=== PATIENT | male | born 1955 | race Caucasian/White ===

== ENCOUNTER 2020-12-10 21:07 | Inpatient (IN) | payer MEDICARE, BC ==
[~2020-12-10] VITALS: Ht 180.3 cm; Wt 85.3 kg
--- NOTE | 2020-12-10 21:17 | NUR ---
BIBS FOR C/O LLQ ABD PAIN X 24 HRS. + DYSURIA, - N/V/D, - HEMATURIA. AMBULATORY TO BED 2. 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
[2020-12-10 21:52] LABS: BASOPHILS # (AUTO) 0.1 /CMM (0.0-0.2); BASOPHILS % (AUTO) 0.8 % (0.0-2.0); EOSINOPHILS % (AUTO) 1.5 % (0.0-6.0); HEMATOCRIT 47 % (39-51); HEMOGLOBIN 15.7 g/dL (13.5-17.5); LYMPHOCYTES # (AUTO) 0.7 /CMM (0.8-4.8); LYMPHOCYTES % (AUTO) 8.5 % (20.0-44.0); MEAN CORPUSCULAR HGB CONC 34 g/dl (31.0-36.0); MEAN CORPUSCULAR VOLUME 92 fL (80-96); MONOCYTES # (AUTO) 0.4 /CMM (0.1-1.30); MONOCYTES % (AUTO) 4.1 % (2.0-12.0); NEUTROPHILS # (AUTO) 7.4 /CMM (1.8-8.9); NEUTROPHILS % (AUTO) 85.1 % (43.0-81.0); PLATELET COUNT (AUTO) 261 /CMM (150-450); RED BLOOD CELL COUNT(AUTO) 5.08 MIL/uL (4.5-6.0); WHITE BLOOD COUNT (AUTO) 8.7 K/uL (4.3-11.0)
--- NOTE | 2020-12-10 21:57 | NUR ---
PT LEFT FOR CT
--- NOTE | 2020-12-10 22:05 | NUR ---
fran, : home [phone] cell [phone]
[2020-12-10 22:07] LABS: CALCIUM, SERUM 8.8 mg/dL (8.5-10.1); CREATININE 1.5 mg/dL (0.6-1.3)
--- NOTE | 2020-12-10 22:07 | NUR ---
back from ct
[2020-12-10 22:14] LABS: ALBUMIN 3.3 g/dL (3.4-5.0); BILIRUBIN,DIRECT 0.2 mg/dL (0.0-0.2); BILIRUBIN,TOTAL 0.8 mg/dL (0.2-1.0); TOTAL PROTEIN, SERUM 7.5 g/dL (6.4-8.2)
[2020-12-10 22:27] LABS: BILIRUBIN,URINE SMALL (NEGATIVE); COLOR,URINE YELLOW (YELLOW); LEUKOCYTE ESTERASE ,URINE Large (NEGATIVE); NITRITE, URINE Negative (NEGATIVE); PROTEIN,URINE >=300 mg/dl (NEGATIVE); UGLUCOSE Negative (NEGATIVE)
[2020-12-10 22:34] LABS: BACTERIA,URINE 3+ /HPF (None Seen); SQUAMOUS EPITHELIAL CELL,UR Few /HPF (None Seen); WBC,URINE TOO NUMEROUS TO COUN /HPF (0-3)
--- NOTE | 2020-12-10 22:50 | NUR ---
DR MANE AT BED SIDE
[2020-12-10] MEDS ORDERED: KETOROLAC TROMETHAMINE INJ 30 MG/ML VIAL IV ONE (23:00)
[2020-12-10] MEDS ORDERED: KETOROLAC TROMETHAMINE INJ 30 MG/ML VIAL ONE (23:01)
[2020-12-10] MEDS ORDERED: CEFTRIAXONE 1 G in IV D5W 50 ML IV ONE (23:30)
[2020-12-11] MEDS ORDERED: IV NS 0.9% 1,000 ML IV PRN
[2020-12-11] MEDS ORDERED: Z GUARD REMEDY 2 OZ OINT TP PRN
[2020-12-11] MEDS ORDERED: MAGNESIUM HYDROXIDE 30 ML UDC PO PRN
[2020-12-11] MEDS ORDERED: ACETAMINOPHEN 325 MG TABLET PO PRN
[2020-12-11] MEDS ORDERED: MORPHINE SULFATE INJ 2 MG/ML DISP.SYRIN IV PRN
[2020-12-11] MEDS ORDERED: ONDANSETRON HCL/PF 4 MG/2 ML VIAL IVP PRN
[2020-12-11] MEDS ORDERED: MAG HYDROX/AL HYDROX/SIMETH 30 ML UDC PO PRN
[2020-12-11] MEDS ORDERED: CEFTRIAXONE 1GM BAG (ER ONLY) 50 ML IV ONE (00:15)
[2020-12-11] MEDS ORDERED: MORPHINE SULFATE INJ 2 MG/ML DISP.SYRIN IV ONE (00:30)
[2020-12-11] MEDS ORDERED: ONDANSETRON HCL/PF 4 MG/2 ML VIAL IV ONE (00:30)
[2020-12-11] MEDS ORDERED: FINA1TAB PO (00:49)
[2020-12-11] MEDS ORDERED: IPRA4AER IH (00:49)
[2020-12-11] MEDS ORDERED: BUDE180A IH (00:49)
[2020-12-11] MEDS ORDERED: PARO10TA86 PO (00:49)
[2020-12-11] MEDS ORDERED: ALBU18HF2 INH (00:49)
--- NOTE | 2020-12-11 00:55 | NUR ---
report given to donato for AILEEN
--- NOTE | 2020-12-11 01:11 | NUR ---
pt was transferred to the third floor in stable condition
[2020-12-11 01:15] VITALS: BP 117/66
--- NOTE | 2020-12-11 01:15 | NUR ---
PATIENT ARRIVED ON THE FLOOR, AWAKE, A/O X4. NO S/S OF DISTRESS NOTED. CALL LIGHT WITHIN REACH. BED IN LOWEST AND LOCKED POSITION. NO COMPLAIN OF PAIN AT THIS MOMENT.
[2020-12-11] MEDS: HYDROCODONE/APAP 5/325MG TABLET PO PRN ×2 (02:21→08:13)
--- NOTE | 2020-12-11 02:41 | NUR ---
INFORMED MD RE: PT HAS EXCRUCIATING PAIN AT THIS MOMENT, NORCO 1 TAB PO GIVEN FEW MINS AGO.
[2020-12-11 06:46] LABS: BASOPHILS % (AUTO) 0.2 % (0.0-2.0); EOSINOPHILS % (AUTO) 0.1 % (0.0-6.0); HEMATOCRIT 45 % (39-51); HEMOGLOBIN 14.9 g/dL (13.5-17.5); LYMPHOCYTES # (AUTO) 0.3 /CMM (0.8-4.8); LYMPHOCYTES % (AUTO) 1.8 % (20.0-44.0); MEAN CORPUSCULAR HGB CONC 34 g/dl (31.0-36.0); MEAN CORPUSCULAR VOLUME 92 fL (80-96); MONOCYTES # (AUTO) 0.5 /CMM (0.1-1.30); MONOCYTES % (AUTO) 2.6 % (2.0-12.0); NEUTROPHILS % (AUTO) 95.3 % (43.0-81.0); PLATELET COUNT (AUTO) 218 /CMM (150-450); RED BLOOD CELL COUNT(AUTO) 4.88 MIL/uL (4.5-6.0); WHITE BLOOD COUNT (AUTO) 18.8 K/uL (4.3-11.0)
[2020-12-11 07:03] LABS: CALCIUM, SERUM 8.3 mg/dL (8.5-10.1); CREATININE 1.9 mg/dL (0.6-1.3); PHOSPHORUS 2.4 mg/dL (2.5-4.9); POTASSIUM 3.8 mmol/L (3.5-5.1)
[2020-12-11 07:50] LABS: BAND % (MANUAL) 2 % (0.0-5.0); LYMPHOCYTES % (MANUAL) 1 % (16-48); MONOCYTES % (MANUAL) 3 % (0-11.0); NEUTROPHILS % (MANUAL) 94 (42-76)
--- NOTE | 2020-12-11 07:50 | NUR ---
MS/RN OPENING NOTE RECEIVED PATIENT FROM NURSES SUPERVISOR NURSE PATIENT A/O X4 AWAKE IN BED. PATIENT DENIES OF ANY PAIN AT THE MOMENT. NO ACUTE DISTRESS NOTED AT THIS TIME. PATIENT ON ROOM AIR, TOLERATING WELL NO SOB NOTED. BREATHING EVEN, NON LABORED. SAFETY MEASURE IN PLACE, BED LOCKED AND IN LOWEST POSITION, CALL LIGHT WITHIN REACH. WILL CONTINUE TO MONITOR AND ENSURE SAFETY
[2020-12-11 08:00] VITALS: BP 128/67
[2020-12-11] MEDS ORDERED: KETOROLAC TROMETHAMINE INJ 30 MG/ML VIAL IV SCH (09:00)
[2020-12-11] MEDS ORDERED: ANESTHESIA TRAY IN PYXIS 1 EA TRAY MC ONE (11:03)
--- NOTE | 2020-12-11 11:40 | NUR ---
MS/RN NOTE PATIENT WAS TAKEN TO SURGERY TO HAVE CYSTOSCOPY, LEFT JJ STENT PLACEMENT AND FLUOROSCOPY PER MD ORDER.
[2020-12-11] MEDS ORDERED: FENTANYL PF 100MCG/2ML AMPUL ONE (11:53)
[2020-12-11] MEDS ORDERED: MIDAZOLAM HCL 2 MG/2ML VIAL ONE (11:53)
[2020-12-11] MEDS: Sodium Phosphate 15 MMOL in IV NS 0.9% 245 ML IV SCH ×2 (12:00→14:02)
[2020-12-11] MEDS ORDERED: CEFTRIAXONE 1 G in IV D5W 50 ML IV ONE (12:00)
--- NOTE | 2020-12-11 12:22 | NUR ---
MS/RN NOTE SODIUM PHOSPHATE WS NOT GIVEN DUE TO PATIENT IN SURGERY.
--- NOTE | 2020-12-11 13:32 | NUR ---
MS/RN NOTE PATIENT ARRIVED FROM OR IN STABLE CONDITION. VS WNL. NO COMPLAINTS OF ANY PAIN AT THEM MOMENT. WILL CONTINUE TO MONITOR AND ENSURE SAFETY.
--- NOTE | 2020-12-11 13:51 | NUR ---
MS/RN NOTE PATIENT WAS GIVEN ROCEPHIN 1G IN THE OR PER OR NURSE.
[2020-12-11 16:00] VITALS: BP 102/57
[2020-12-11] MEDS ORDERED: TEMAZEPAM 7.5 MG CAPSULE PO PRN (19:00)
--- NOTE | 2020-12-11 19:26 | NUR ---
MS/RN CLOSING NOTE PATIENT A/O X4 AWAKE IN BED. PATIENT DENIES OF ANY PAIN AT THE MOMENT. NO ACUTE DISTRESS NOTED AT THIS TIME. PATIENT ON ROOM AIR, TOLERATING WELL NO SOB NOTED. BREATHING EVEN, NON LABORED. SAFETY MEASURE IN PLACE, BED LOCKED AND IN LOWEST POSITION, CALL LIGHT WITHIN REACH. ALL NEEDS MET THROUGHOUT THE SHIFT. WILL ENDORSE TO CONSTRUCTION ECONOMIST NURSE.
--- NOTE | 2020-12-11 19:59 | NUR ---
MS RN OPENING NOTE Patient awake in bed, a/o x4, ambulatory. Breathing even, clear, unlabored on RA. No pain noted. No acute distress or SOB noted. Patient is ambulatory with BRP. IV site LAC 18g running NS @ 75 ml/hr. Patient able to verbalize needs. Bed in low position, wheels locked, side rails up x2, call light within reach.
[2020-12-11 20:00] VITALS: BP 97/49
[2020-12-11 22:41] VITALS: BP 97/49
--- NOTE | 2020-12-12 06:05 | NUR ---
MS RN CLOSING NOTE Patient awake in bed, a/o x4, ambulatory. No pain noted. No acute distress or SOB noted. Patient is ambulatory with BRP. IV site LAC 18g running NS @ 75 ml/hr. All needs met. Medications administered as ordered. Bed in low position, wheels locked, side rails up x2, call light within reach.
[2020-12-12 06:43] LABS: BASOPHILS % (AUTO) 0.3 % (0.0-2.0); EOSINOPHILS % (AUTO) 0.1 % (0.0-6.0); HEMATOCRIT 43 % (39-51); HEMOGLOBIN 14.3 g/dL (13.5-17.5); LYMPHOCYTES # (AUTO) 0.5 /CMM (0.8-4.8); LYMPHOCYTES % (AUTO) 3.2 % (20.0-44.0); MEAN CORPUSCULAR HGB CONC 34 g/dl (31.0-36.0); MEAN CORPUSCULAR VOLUME 92 fL (80-96); MONOCYTES # (AUTO) 0.5 /CMM (0.1-1.30); MONOCYTES % (AUTO) 3.5 % (2.0-12.0); NEUTROPHILS # (AUTO) 13.9 /CMM (1.8-8.9); NEUTROPHILS % (AUTO) 92.9 % (43.0-81.0); PLATELET COUNT (AUTO) 216 /CMM (150-450); RED BLOOD CELL COUNT(AUTO) 4.62 MIL/uL (4.5-6.0)
--- NOTE | 2020-12-12 07:00 | NUR ---
RN OPENING NOTES RECEIVED PT AWAKE IN BED AT THIS TIME. AOX4, PT STABLE ON RA. NO SOB NOTED, NO SIGN OF ANY ACUTE DISTRESS NOTED, NO C/O PAIN AT THIS TIME. IV ACCESS NOTED IN LAC G#18 INTACT, PATENT AND FLUSHING WELL. ASPIRATIONS AND SAFETY PRECAUTIONS IN PLACE AND MAINTAINED AT ALL TIMES. BED IN LOWEST LOCKED POSITION, SIDE RAILS UP, HOB ELEVATED, TABLE AND CALL LIGHT WITHIN REACH. WILL CONTINUE TO MONITOR
[2020-12-12 07:02] LABS: CALCIUM, SERUM 8.8 mg/dL (8.5-10.1); CREATININE 1.2 mg/dL (0.6-1.3); MAGNESIUM 2.5 mg/dL (1.8-2.4); PHOSPHORUS 3.6 mg/dL (2.5-4.9); POTASSIUM 4.3 mmol/L (3.5-5.1)
[2020-12-12 08:00] VITALS: BP 102/60
[2020-12-12] MEDS ORDERED: KETOROLAC TROMETHAMINE INJ 30 MG/ML VIAL IV ONE (09:00)
[2020-12-12] MEDS ORDERED: HYDR-4209 PO (09:54)
[2020-12-12] MEDS ORDERED: CEPH500C2 PO (09:54)
[2020-12-12] MEDS ORDERED: CEFTRIAXONE 1 G in IV D5W 50 ML IV SCH ×3 (12:00)
--- NOTE | 2020-12-12 12:55 | NUR ---
CAN BANDER OPERATOR NOTES PT DISCHARGE HOME AT THIS TIME. PT MEDICALLY STABLE AND CLEARED FOR DISCHARGE BY JERAMY CLIFTON. ALL DISCHARGE INSTRUCTIONS PROVIDED, PT VERBALIZED UNDERSTANDING. ALL CARE, NEEDS, MEDICATIONS AND TREATMENT ADMINISTERED ANTICIPATED PER ORDER. BELONGINGS ACCOUNTED FOR, SIGNED BY PT AND WITH PT. IV ACCESS REMOVED, PRESSURE APPLIED, SECURED WITH GAUZE AND TAPE, NO S/O BLEEDING NOTED OR INFILTRATION NOTED. ID BAND REMOVED. PT LEFT UNIT IN STABLE CONDITION, ACCOMPANIED BY SANDRA TESFAYE. PT PICKED UP IN PRIVATE CAR BY .[email or web address], CHARGE NURSE AND JERAMY CLIFTON AWARE.
== END 2020-12-12 12:50 | disposition home or self-care (01) | DRG 660 ==
LOC: ER 21:12 → MED 12-11 00:49
PROVIDERS: ADMIT Internal Medicine; ATTEND Nurse Practitioner Family
PROC: 0T778DZ Dilation of Left Ureter with Intraluminal Device, Via Natural or Artificial Opening Endoscopic (ICD-10-PCS; principal; 2020-12-11)
DX: N13.6 Pyonephrosis (principal); N17.0 Acute kidney failure with tubular necrosis; E44.0 Moderate protein-calorie malnutrition; J44.9 Chronic obstructive pulmonary disease, unspecified; Z87.442 Personal history of urinary calculi; E88.09 Other disorders of plasma-protein metabolism, not elsewhere classified; B96.20 Unspecified Escherichia coli [E. coli] as the cause of diseases classified elsewhere; B96.1 Klebsiella pneumoniae [K. pneumoniae] as the cause of diseases classified elsewhere; N20.1 Calculus of ureter; Z68.26 Body mass index [BMI] 26.0-26.9, adult; Z20.822 Contact with and (suspected) exposure to COVID-19; N39.0 Urinary tract infection, site not specified
CPT/HCPCS: 36415; 74018; 80048-TC; 80076-TC; 81001; 83690-TC; 83735-TC; 84100-TC; 85025-TC; 87081-TC; 87086-TC; 87186-TC; A4217; A6403; A9563; C1769; C2617; C9803; G0378; J0696; J1100; J1885; J2250; J2270; J2405; J2704; J3010; J3490; J7030; J7050; J7060

== ENCOUNTER 2021-02-14 19:20 | Inpatient (IN) | payer MEDICARE, BC ==
[~2021-02-14] VITALS: Ht 180.3 cm; Wt 81.6 kg
[~2021-02-14 19:20] MED LIST: ALBU18HF2 INH; BUDE180A IH; CEPH500C2 PO; FINA1TAB PO; HYDR-4209 PO; IPRA4AER IH; PARO10TA86 PO
[2021-02-14] MEDS ORDERED: methylPREDNISolone SOD SUCC 125 MG/2ML VIAL ONE (19:46)
[2021-02-14] MEDS ORDERED: IPRATROPIUM NEB FS 0.5 MG/2.5 ML AMPUL.NEB ONE ×2 (19:59→20:35)
[2021-02-14] MEDS ORDERED: ALBUTEROL FS 2.5 MG/3 ML VIAL.NEB ONE ×2 (19:59→20:35)
[2021-02-14] MEDS ORDERED: methylPREDNISolone SOD SUCC 125 MG/2ML VIAL IV ONE (20:00)
[2021-02-14] MEDS ORDERED: IPRATROPIUM NEB FS 0.5 MG/2.5 ML AMPUL.NEB NEB ONE ×2 (20:00→21:30)
[2021-02-14] MEDS ORDERED: ALBUTEROL FS 2.5 MG/3 ML VIAL.NEB NEB ONE ×2 (20:00→21:30)
[2021-02-14 20:02] LABS: BASOPHILS % (AUTO) 0.2 % (0.0-2.0); EOSINOPHILS % (AUTO) 11.3 % (0.0-6.0); HEMATOCRIT 44 % (39-51); HEMOGLOBIN 14.6 g/dL (13.5-17.5); LYMPHOCYTES # (AUTO) 1.1 /CMM (0.8-4.8); LYMPHOCYTES % (AUTO) 25.1 % (20.0-44.0); MEAN CORPUSCULAR HGB CONC 33 g/dl (31.0-36.0); MEAN CORPUSCULAR VOLUME 88 fL (80-96); MONOCYTES # (AUTO) 0.3 /CMM (0.1-1.30); MONOCYTES % (AUTO) 7.5 % (2.0-12.0); NEUTROPHILS # (AUTO) 2.4 /CMM (1.8-8.9); NEUTROPHILS % (AUTO) 55.9 % (43.0-81.0); PLATELET COUNT (AUTO) 216 /CMM (150-450); RED BLOOD CELL COUNT(AUTO) 4.99 MIL/uL (4.5-6.0); WHITE BLOOD COUNT (AUTO) 4.3 K/uL (4.3-11.0)
--- NOTE | 2021-02-14 20:04 | NUR ---
RAD AND RT AT BED SIDE
[2021-02-14 20:24] LABS: CALCIUM, SERUM 9.6 mg/dL (8.5-10.1); CARBON DIOXIDE 29 mmol/L (21-32); CHLORIDE 105 mmol/L (98-107); CREATININE 0.9 mg/dL (0.6-1.3); GLUCOSE 82 mg/dL (74-106); POTASSIUM 3.9 mmol/L (3.5-5.1); SODIUM SERUM 140 mmol/L (136-145); UREA NITROGEN, BLOOD 16 mg/dL (7-18)
--- NOTE | 2021-02-14 20:38 | NUR ---
PT AMBULATORY TO THE BATHROOM. JASON WELL
--- NOTE | 2021-02-14 21:00 | NUR ---
breathing tx administered albuterol 2.5mg+ atrovent 0.5mg per er physician verbal order.
--- NOTE | 2021-02-14 21:06 | NUR ---
VELASQUEZ MCCARTHY, HOSPITALIST AT BED SIDE
[2021-02-14] MEDS ORDERED: Z GUARD REMEDY 2 OZ OINT TP PRN (21:30)
[2021-02-14] MEDS ORDERED: HYDROCODONE/APAP 5/325MG TABLET PO PRN (21:30)
[2021-02-14] MEDS ORDERED: MAGNESIUM HYDROXIDE 30 ML UDC PO PRN (21:30)
[2021-02-14] MEDS ORDERED: ZOLPIDEM TARTRATE 5 MG TABLET PO PRN (21:30)
[2021-02-14] MEDS ORDERED: IPRATROPIUM NEB FS 0.5 MG/2.5 ML AMPUL.NEB NEB PRN (21:30)
[2021-02-14] MEDS ORDERED: ACETAMINOPHEN 325 MG TABLET PO PRN (21:30)
[2021-02-14] MEDS ORDERED: ALBUTEROL FS 2.5 MG/3 ML VIAL.NEB NEB PRN (21:30)
[2021-02-14] MEDS ORDERED: MAG HYDROX/AL HYDROX/SIMETH 30 ML UDC PO PRN (21:30)
[2021-02-14] MEDS ORDERED: ONDANSETRON HCL/PF 4 MG/2 ML VIAL IVP PRN (21:30)
--- NOTE | 2021-02-14 22:19 | NUR ---
Call from lab. Rapid covid negative.
--- NOTE | 2021-02-14 22:34 | NUR ---
Patient is resting comfortably in bed with eyes closed. Easily aroused. VSS
--- NOTE | 2021-02-14 22:35 | NUR ---
BED ASSIGNMENT: 112-1
--- NOTE | 2021-02-14 23:12 | NUR ---
REPORT GIVEN TO FIONA MARS. WILL TRANSPORT PT VIA ACLS PROTOCOL.
--- NOTE | 2021-02-14 23:25 | NUR ---
ADMITTING NOTES REC'D PT VIA JONATHAN FROM ED, PT IS A/O X4, COOPERATIVE. PT IS ON 2L OF O2 VIA NC, TOLERATING WELL. PT IS SOB ON EXERTION. WHILE AT REST, PT DENIES SOB AT THIS TIME. ON TELE MONITOR PRESENTS WITH NSR HEART RATE 83 AT THIS TIME. PT HAS LEFT AC #18 FLUSHED. DISCOURAGED AMBULATION, PROVIDED URINAL PT UNDERSTANDS VERBALIZES COMPLIANCE AT THIS TIME. PT DENIES PAIN AT THIS TIME. NEEDS ATTENDED. DISCUSSED CODE STATUS WITH PT WHO VERBALIZES DESIRE FOR NO INTUBATION, ONLY CPR WITH SPANISH LECTURER MARIE AND LUIS ANGEL VEGA, AT BEDSIDE. RELAYED INFORMATION TO MICROELECTRONICS ENGINEER, SHARI DIABETES SPECIALIST. SAFETY MEASURES IN PLACE. HOB ELEVATED. SIDE RAILS UP X2, BED LOCKED IN LOWEST POSITION WITH BED ALARM ON. CALL LIGHT WITHIN REACH WILL CONT TO MONITOR THROUGHOUT SHIFT.
--- NOTE | 2021-02-14 23:35 | NUR ---
pt was transferred to 112 under ACLS
[2021-02-15] VITALS: BP 156/88
[2021-02-15] MEDS: methylPREDNISolone SOD SUCC 40 MG/ML VIAL IV SCH ×3 (01:04→11:56)
--- NOTE | 2021-02-15 03:20 | NUR ---
RN NOTE PT REMAINS ASLEEP, NO DISTRESS NOTED UPON ROUNDS.
[2021-02-15 04:00] VITALS: BP 131/82
[2021-02-15] MEDS: ALBUTEROL FS 2.5 MG/3 ML VIAL.NEB NEB SCH ×3 (06:00→12:00)
[2021-02-15] MEDS: IPRATROPIUM NEB FS 0.5 MG/2.5 ML AMPUL.NEB NEB SCH ×3 (06:00→12:00)
[2021-02-15 06:10] LABS: BASOPHILS % (AUTO) 0.5 % (0.0-2.0); EOSINOPHILS % (AUTO) 0.5 % (0.0-6.0); HEMATOCRIT 41 % (39-51); HEMOGLOBIN 13.9 g/dL (13.5-17.5); LYMPHOCYTES # (AUTO) 0.6 /CMM (0.8-4.8); LYMPHOCYTES % (AUTO) 17.3 % (20.0-44.0); MEAN CORPUSCULAR HGB CONC 34 g/dl (31.0-36.0); MEAN CORPUSCULAR VOLUME 88 fL (80-96); MONOCYTES % (AUTO) 0.9 % (2.0-12.0); NEUTROPHILS # (AUTO) 2.6 /CMM (1.8-8.9); NEUTROPHILS % (AUTO) 80.8 % (43.0-81.0); PLATELET COUNT (AUTO) 180 /CMM (150-450); RED BLOOD CELL COUNT(AUTO) 4.67 MIL/uL (4.5-6.0); WHITE BLOOD COUNT (AUTO) 3.2 K/uL (4.3-11.0)
[2021-02-15 06:14] LABS: ALBUMIN 3.6 g/dL (3.4-5.0); BILIRUBIN,TOTAL 0.5 mg/dL (0.2-1.0); CALCIUM, SERUM 9.4 mg/dL (8.5-10.1); CREATININE 0.8 mg/dL (0.6-1.3); MAGNESIUM 2.1 mg/dL (1.8-2.4); PHOSPHORUS 2.9 mg/dL (2.5-4.9); POTASSIUM 4.7 mmol/L (3.5-5.1); TOTAL PROTEIN, SERUM 7.5 g/dL (6.4-8.2)
--- NOTE | 2021-02-15 06:36 | NUR ---
RN CLOSING NOTES NO SIGNIFICANT CHANGES IN PT CONDITION. NO RESP DISTRESS NOTED THROUGHOUT SHIFT. PT HAD ADEQUATE REST THROUGH SHIFT. STILL ON 2L OF O2, BREATHING EVEN AND UNLABORED. PT MOTIVATED TO SELF CARE, HYGIENE PRODUCTS PROVIDED. PT REMAINS AFEBRILE. ORDERS CARRIED OUT. NEEDS ATTENDED. SAFETY MEASURES IN PLACE. HOB ELEVATED. SIDE RAILS UP X2, BED LOCKED IN LOWEST POSITION WITH BED ALARM ON. CALL LIGHT WITHIN REACH WILL CONT TO MONITOR UNTIL END OF SHIFT, WILL GIVE REPORT TO ONCOMING RN.
--- NOTE | 2021-02-15 07:20 | NUR ---
RN OPENING NOTES RECEIVED PT AWAKE, A/O X4. ON 2L OF O2 VIA NC, SATURATING @97%. NO SOB OR ANY RESPIRATORY DISTRESS NOTED. TELE MONITOR READS SR. LAC #18 INTACT, PATENT AND FLUSHED. NO PAIN REPORTED AT THIS TIME. AMBULATORY. SKIN IS INTACT. SAFETY MEASURES IN PLACE. CALL LIGHT WITHIN REACH. HOB ELEVATED. BED LOCKED AND IN LOWEST POSITION WITH SIDE RAILS UP X2. BED ALARM ON. WILL CONTINUE TO MONITOR.
[2021-02-15] MEDS ORDERED: PANTOPRAZOLE 40 MG TABLET.DR PO SCH (07:30)
[2021-02-15 08:00] VITALS: BP 130/86
[2021-02-15] MEDS ORDERED: BUDESONIDE 90 MCG XX SCH (09:00)
[2021-02-15] MEDS ORDERED: Medication Not On Formulary EA (Ipratropium/Albuterol Sulfate (Combivent Respimat 20-100 XX SCH (09:00)
[2021-02-15] MEDS ORDERED: FLUTICASONE/VILANTEROL 1 EACH BLST.W.DEV IH SCH (10:00)
[2021-02-15 12:00] VITALS: BP 134/76
[2021-02-15] MEDS ORDERED: SIMV40TA2 PO (13:24)
[2021-02-15] MEDS ORDERED: PAROXETINE HCL 20 MG TABLET PO SCH (14:00)
[2021-02-15] MEDS ORDERED: PRED50TA PO (16:42)
[2021-02-15] MEDS ORDERED: SIMVASTATIN 20 MG TABLET PO SCH (22:00)
== END 2021-02-15 18:24 | disposition home or self-care (01) | DRG 189 ==
LOC: ER 19:21 → TELE1 23:15 → MEDSG1 02-15 08:56
PROVIDERS: ADMIT Nurse Practitioner Acute Care; ATTEND Internal Medicine
DX: J96.01 Acute respiratory failure with hypoxia (principal); J44.1 Chronic obstructive pulmonary disease with (acute) exacerbation; J45.901 Unspecified asthma with (acute) exacerbation; R53.1 Weakness; N40.0 Benign prostatic hyperplasia without lower urinary tract symptoms; Z87.442 Personal history of urinary calculi; J45.909 Unspecified asthma, uncomplicated; R73.9 Hyperglycemia, unspecified; Z20.822 Contact with and (suspected) exposure to COVID-19
CPT/HCPCS: 36415; 71045-TC; 80048-TC; 80053-TC; 83735-TC; 84100-TC; 84484-TC; 85025-TC; 87081-TC; 94799-TC; C9803; G0378; J2920; J2930